=== PATIENT | female | born 1985 | race Caucasian/White ===

== ENCOUNTER 2021-07-24 22:45 | Emergency (ER) | payer BC ==
[~2021-07-24] VITALS: Ht 167.6 cm; Wt 72.6 kg
[2021-07-25] MEDS ORDERED: PEPCID40 MG PO (03:06)
[2021-07-25] MEDS ORDERED: BENADRYL25 MG PO (03:06)
[2021-07-25] MEDS ORDERED: MEDROL8 MG PO (03:06)
== END 2021-07-25 03:10 ==
LOC: ER 22:45
DX: T78.1XXA Other adverse food reactions, not elsewhere classified, initial encounter (principal); X58.XXXA Exposure to other specified factors, initial encounter